=== PATIENT | female | born 1965 | race Asian ===

== ENCOUNTER 2025-07-11 10:29 | Emergency (ER) | payer MEDICAID, OTHER ==
[~2025-07-11] VITALS: Ht 165.1 cm; Wt 54.0 kg
[~2025-07-11 10:29] MED LIST: DIPH25TA62 MT
[2025-07-11 10:33] VITALS: O2SAT 98
[2025-07-11] MEDS: SODIUM CHLORIDE 0.9% 1,000 ML IV ONE (11:02)
[2025-07-11 11:15] LABS: HEMATOCRIT. 31.7 % (36.0-48.0); HEMOGLOBIN. 10.4 g/dL (12.0-16.0); MEAN PLATELET VOLUME 8.0 fl (7.4-10.4); PLATELET 263 x1000/uL (130-400); RED BLOOD CELL COUNT 3.39 mill/uL (4.2-5.4); RED CELL DISTRIBUTION WIDTH 12.6 % (11.6-14.6)
[2025-07-11 11:30] LABS: CREATININE 0.7 mg/dL (0.6-1.0); UREA NITROGEN BLOOD 17 mg/dL (9-23)
[2025-07-11 11:31] LABS: TROPONIN I HIGH SENSITIVITY < 4 ng/L (3.0-34)
[2025-07-11 11:32] LABS: ASPARTATE AMINOTRANSFERASE 15 IU/L (<34); BILIRUBIN DIRECT 0.1 mg/dL (<=3.0)
[2025-07-11 11:33] LABS: BILIRUBIN TOTAL 0.6 mg/dL (0.1-1.0); PROTEIN TOTAL 7.2 g/dL (6.0-8.3)
[2025-07-11 11:59] LABS: EOSINOPHILS % MANUAL 3.0 % (0.0-5.0); LYMPHOCYTES % MANUAL 35.0 % (20.0-60.0); MONOCYTES % MANUAL 5.0 % (2.0-8.0); NEUTROPHILS % MANUAL 57.0 % (45.0-75.0); PLATELET ESTIMATE NORMAL
[2025-07-11 13:34] VITALS: BP 148/78; PULSE 90; RESP 16; TEMP 36.9; O2SAT 99
== END 2025-07-11 13:35 | disposition home or self-care (01) ==
LOC: ER 10:29
DX: R42 Dizziness and giddiness (principal); R55 Syncope and collapse; E86.0 Dehydration; R53.1 Weakness; E11.9 Type 2 diabetes mellitus without complications; I10 Essential (primary) hypertension; I46.9 Cardiac arrest, cause unspecified; Z91.013 Allergy to seafood
CPT/HCPCS: 99285; 96360; 71045; 80076; 80048; 83605; 85025; 87040; 84484; 36415; 93005; J7030; 99291; A4606